=== PATIENT | male | born 1945 | race Caucasian/White ===

== ENCOUNTER 2017-07-12 08:24 | Day surgery (SDC) | payer OTHER ==
[2017-07-12 09:10] LABS: ADD MAN DIFF? NO
[2017-07-12 09:19] LABS: WHITE BLOOD COUNT 8.6 10^3/ul (4.8-10.8)
[2017-07-12 09:19] LABS: BASOPHILS % 0.4 % (0.0-2.0); EOSINOPHILS # 0.3 10^3/ul (0.0-0.5); EOSINOPHILS % 3.4 % (0.0-7.0); HEMATOCRIT 40.7 % (42.0-52.0); HEMOGLOBIN 13.3 g/dl (14.0-18.0); LYMPHOCYTES # 1.8 10^3/ul (0.8-2.9); MEAN CORPUSCULAR HEMOGLOBIN 29.5 pg (29.0-33.0); MEAN CORPUSCULAR HGB CONC 32.7 g/dl (32.0-37.0); MEAN CORPUSCULAR VOLUME 90.2 fl (82.0-101.0); MEAN PLATELET VOLUME 9.8 fl (7.4-10.4); MONOCYTE # 0.8 10^3/ul (0.3-0.9); NEUTROPHIL # 5.6 10^3/ul (1.6-7.5); NEUTROPHILS % 65.8 % (39.0-77.0); PLATELET COUNT 212 10^3/UL (140-415); RED BLOOD COUNT 4.51 10^6/ul (4.70-6.10); RED CELL DISTRIBUTION WIDTH 13.4 % (11.5-14.5)
[2017-07-12 09:39] LABS: ANION GAP 13 (8-16); CARBON DIOXIDE 31 mmol/L (21-31); CHLORIDE 105 mmol/L (97-110); GLUCOSE 126 mg/dl (70-220)
[2017-07-12 09:40] LABS: POTASSIUM 5.1 mmol/L (3.5-5.1); SODIUM 144 mmol/L (135-144)
[2017-07-12 09:42] LABS: BLOOD UREA NITROGEN 32 mg/dl (7-20); CALCIUM 9.7 mg/dl (8.4-10.2)
[2017-07-12 09:43] LABS: INR 0.99; PROTIME 13.2 Sec (11.9-14.9)
[2017-07-12] MEDS ORDERED: HEPARIN 1000 UNITS/NS (A-LINE) 1,000 ML (12:54)
[2017-07-12] MEDS ORDERED: HEPARIN 1000 UNITS/ML 10 ML INJ (12:54)
[2017-07-12] MEDS ORDERED: MIDAZOLAM 1 MG/ML 2 ML INJ (12:54)
[2017-07-12] MEDS ORDERED: LIDOCAINE 1% (MDV) 20 ML INJ (12:54)
[2017-07-12] MEDS ORDERED: FENTAnyl 50 MCG/ML VIAL (12:55)
[2017-07-12] MEDS ORDERED: NITROGLYCERIN (IC) 100 MCG/ML INJ (12:55)
[2017-07-12] MEDS: SOD CHLORIDE 0.9% 1,000 ML IV (14:28)
== END 2017-07-12 17:05 | disposition home or self-care (01) ==
LOC: SDS 08:24
DX: I25.10 Atherosclerotic heart disease of native coronary artery without angina pectoris (principal)
CPT/HCPCS: 80048; 82962; 85025; 85610; 85730; 93005; 93454